=== PATIENT | female | born 1995 | race Two or more races ===

== ENCOUNTER 2023-09-01 09:27 | Emergency (ER) | payer OTHER ==
[~2023-09-01] VITALS: Ht 149.9 cm; Wt 50.8 kg
[2023-09-01 12:20] LABS: HEMATOCRIT 41.8 % (36.0-45.00); MEAN CELL VOLUME 90.7 fL (80.00-100.00); MEAN CORPUSCULAR HEMOGLOBIN 30.4 pg (27.00-32.0); MEAN CORPUSCULAR HGB CONC 33.5 g/dl (32.0-36.0); PLATELET COUNT 236 K/uL (150-450); RED BLOOD COUNT 4.61 M/uL (4.00-6.00); RED CELL DISTRIBUTION WIDTH 12.4 % (11.5-14.5)
[2023-09-01 12:48] LABS: CALCIUM 9.2 mg/dL (8.5-10.1); CREATININE SERUM 0.77 mg/dL (0.55-1.02); GFR 89.26; POTASSIUM 3.89 mEq/L (3.5-5.1)
[2023-09-01] MEDS ORDERED: ALLEGRA-D 24 H1 EACH PO (13:45)
[2023-09-01] MEDS ORDERED: FLONASE ALLERG9.9 ML NASAL (13:45)
== END 2023-09-01 13:54 | disposition home or self-care (01) ==
LOC: ER 09:28
PROVIDERS: General Practice
DX: R68.89 Other general symptoms and signs (principal); Z20.822 Contact with and (suspected) exposure to COVID-19